=== PATIENT | female | born 1955 | race Caucasian/White ===

== ENCOUNTER 2019-11-01 08:25 | Outpatient (CLI) | payer MEDICARE, OTHER, SELFPAY ==
--- NOTE | 2019-11-01 08:54 | US_ITS ---
WS: [id number] RIGHT DIGITAL MAMMOGRAPHY WITH CAD CLINICAL INFORMATION: ABNORMAL MAMMOGRAM COMPARISON: September 30, 2019 TECHNIQUE: 2 views of the right breast were obtained. FINDINGS: The right breast is composed of heterogeneous fibroglandular density tissue, which can limit the dete ction of small underlying mass lesions. Again seen is the asymmetric density lower quadrant right breast near the inframammary fold. This per sists on spot compression views. Ultrasound is pending. ULTRASOUND BREAST RIGHT TECHNIQUE: Ultrasound right breast focused area of concern. CLINICAL INFORMATION: ABNORMAL MAMMOGRAM COMPARISON: None. FINDINGS: Ultrasound right breast 6 clock position. Area of ductal dilatation with intraductal lesion measuring 2.2 x 0.6 x 1.9 cm suspicious for papilloma. Recommend further evaluation with ultrasound-guided bio psy. US/US breast RT limited* [id number] IMPRESSION: BI-RADS: 4B-Suspicious: Intermediate FOLLOW UP: US Guided Biopsy Recommended
== END 2019-11-01 08:26 | disposition home or self-care (01) ==
LOC: RADSHAW 08:38
PROVIDERS: Family Provider Nurse Practitioner Family; PCP Nurse Practitioner Family; Visit Provider Nurse Practitioner Family
DX: N64.9 Disorder of breast, unspecified (principal); R92.1 Mammographic calcification found on diagnostic imaging of breast
CPT/HCPCS: 76642; 77065

== ENCOUNTER 2019-11-11 13:33 | Outpatient (CLI) | payer MEDICARE, OTHER, SELFPAY ==
[2019-11-11 14:12] LABS: INR 0.99 (0.8-1.2)
--- NOTE | 2019-11-11 14:30 | US_ITS ---
WS: [id number] ULTRASOUND-GUIDED RIGHT BREAST BIOPSY CLINICAL INFORMATION: ABNORMAL MAMMO AND US COMPARISON: None. FINDINGS: The procedure including risks, benefits, and complications were discussed with the patient who agreed to proceed. Using sterile technique patient was prepped and draped in the usual sterile fashion. Aft er 1% lidocaine utilizing real-time ultrasound guidance 4 14-gauge cores were obtained of the right b reast lesion at the 6 o'clock position. Subsequently a titanium clip was placed in the biopsy cavity. No immediate complications. Pathology demonstrates benign breast tissue with fibrosis. No malignancy identified. US/[place] [id number] IMPRESSION: 1. Uncomplicated ultrasound-guided right breast biopsy. 2. The pathology demonstrates benign breast tissue with fibrosis. No malignanc y identified. BI-RADS: 2-Benign FOLLOW UP: 6 Month Follow-up Recommend 6 month follow-up post biopsy right Diagnostic mammogram and ultrasound.
== END 2019-11-11 13:34 | disposition home or self-care (01) ==
PROVIDERS: Visit Provider Family Medicine
DX: Z01.812 Encounter for preprocedural laboratory examination (principal); R92.8 Other abnormal and inconclusive findings on diagnostic imaging of breast; N63.15 Unspecified lump in the right breast, overlapping quadrants
CPT/HCPCS: 19083; 85610; 88305; J2001

== ENCOUNTER 2020-06-11 18:12 | Emergency (ER) | payer MEDICARE, OTHER, SELFPAY ==
[2020-06-11 18:45] VITALS: BP 131/78; PULSE 67; RESP 16; TEMP 36.8; O2SAT 95; BMI 29.9
--- NOTE | 2020-06-11 19:32 | XR_ITS ---
WS: [id number] Chest 2 views, 06/11/2020 Clinical Data: injury Comparison: Portable chest, 07/11/2018. Findings: No nodules, masses or effusions are seen. The heart is normal. The pulmonary vascularity is not increased. No pneumonia or pneumothorax is seen. Midline sternotomy sutures are present. The aor tic arch and descending aorta are minimally tortuous. There are mediastinal clips in the left hilum. There are surgical clips in the left axilla. There are clips in the right upper quadrant from a leeann cystectomy. There are surgical clips in the gastroesophageal junction region. XR/XR chest 2V* [id number] Impression: Atherosclerosis.
--- NOTE | 2020-06-11 23:00 | CTR_ITS ---
PROCEDURE INFORMATION: Exam: CT Chest Without Contrast Exam date and time: 06/11/2020 1:01 AM Age: 64 years old Clinical indication: Injury or trauma; Fall; Initial encounter; Generalized; Blunt trauma (contusions or hematomas); Prior surgery; Surgery type: Cholecystectomy, hysterectomy, cabg, lumpectomy TECHNIQUE: Imaging protocol: Computed tomography of the chest without contrast. Radiation optimization: All CT scans at this facility use at least one of these dose optimization techniques: automated exposure control; mA and/or kV adjustment per patient size (includes targeted exams where dose is matched to clinical indication); or iterative reconstruction. COMPARISON: CT abdomen pelvis w con* [id number] 07/11/2018 5:49 PM RADIATION DOSE METRICS: Total DLP (mGy-cm): 1804.63 FINDINGS: Lungs: Left lower lobe atelectasis. Pleural space: Trace left pleural effusion. Heart: Unremarkable. No cardiomegaly. No pericardial effusion. Aorta: Unremarkable. No aortic aneurysm. Lymph nodes: Unremarkable. No enlarged lymph nodes. Bones/joints: Sternotomy wires. Left 7th, 8th, 9th and 10th displaced rib fractures. Soft tissues: Unremarkable. IMPRESSION: 1. Left 7th, 8th, 9th and 10th displaced rib fractures. 2. Sternotomy wires. 3. Trace left pleural effusion. 4. Left lower lobe atelectasis. PROCEDURE INFORMATION: Exam: CT Abdomen And Pelvis Without Contrast Exam date and time: 06/11/2020 1:01 AM Age: 64 years old Clinical indication: Injury or trauma; Fall; Initial encounter; Generalized; Blunt trauma (contusions or hematomas); Prior surgery; Surgery type: Cholecystectomy, hysterectomy, cabg, lumpectomy TECHNIQUE: Imaging protocol: Computed tomography of the abdomen and pelvis without contrast. Radiation optimization: All CT scans at this facility use at least one of these dose optimization techniques: automated exposure control; mA and/or kV adjustment per patient size (includes targeted exams where dose is matched to clinical indication); or iterative reconstruction. COMPARISON: CT abdomen pelvis w con* [id number] 07/11/2018 5:49 PM RADIATION DOSE METRICS: Total DLP (mGy-cm): 1804.63 FINDINGS: Liver: Normal. No mass. Gallbladder and bile ducts: Cholecystectomy. Pancreas: Normal. No ductal dilation. Spleen: Normal. No splenomegaly. Adrenals: Normal. No mass. Kidneys and ureters: Normal. No hydronephrosis. Stomach and bowel: Diverticulosis without diverticulitis. Appendix: No evidence of appendicitis. Intraperitoneal space: Unremarkable. No free air. No significant fluid collection. Vasculature: Unremarkable. No abdominal aortic aneurysm. Lymph nodes: Unremarkable. No enlarged lymph nodes. Bladder: Unremarkable as visualized. Reproductive: Unremarkable as visualized. Bones/joints: Unremarkable. No acute fracture. Soft tissues: Unremarkable. CT/CT chest abd pel wo con IMPRESSION: 1. Negative for traumatic injury to the abdomen or pelvis. 2. Cholecystectomy. 3. Diverticulosis without diverticulitis. Radiation Dose CTDIVOL = (mGy): DLP = 1804.63~1804.63 (mGy-cm)
--- NOTE | 2020-06-11 23:04 | W.ED.FALL ---
HPI - Fall General: Chief Complaint: Fall Stated Complaint: FALL THROUGH FLOOR, AB PAIN Time Seen by Provider: 06/11/20 22:56 Source: patient Mode of arrival: ambulatory Limitations: no limitations History of Present Illness: HPI Narrative: 64-year-old female who states she was [place] house today and fell to the floor. Patient states that the atul hit her in her left ribs and has had left rib pain since then. States this happened this afternoon and states pain is sharp in nature and hurts with any movement or deep breaths. She denies any head or neck injuries. Denies any extremity pain is able to ambulate without any difficulty. Associated symptoms-after fall: Reports chest pain; Denies abdominal pain, headache(s) or neck pain Review of Systems Const: Denies: fever(s), chills, body aches or change in appetite Eyes: Denies: blurry vision or eye discomfort ENMT: Denies: throat pain or dental pain Card: Reports: chest pain Resp: Denies: dyspnea GI: Denies: abdominal pain, nausea, vomiting or diarrhea : Denies: dysuria Musc: Denies: neck pain or back pain Skin/Breast: Denies: rash Neuro: Denies: headache(s) Psych: Denies: depression Ady/Lymph: Denies: easy bruising All/Imm: Denies: urticaria PFSH ED PFSH: Medical History CAD (coronary artery disease) HTN (hypertension) Surgical History S/P CABG (coronary artery bypass graft) Family History Other Heart disease Social History Smoking and tobacco status: never smoked Alcohol intake: never Substance/Drug Use: never Physical Exam Const: COMMON NORMALS: no acute distress, patient oriented x3 and healthy appearing HENMT: COMMON NORMALS: normocephalic and atraumatic HEAD & SCALP: normocephalic and atraumatic Eye: COMMON NORMALS: Equal, round and reactive pupils present and EOMs intact bilaterally PUPIL: Yes Equal, round and reactive pupils present Neck/C-Spine: COMMON NORMALS: full ROM and supple Chest: COMMONS NORMALS: normal inspection of the chest OTHER: tenderness over left chest Resp: COMMON NORMALS: normal respiratory effort, No retractions, No use of accessory muscles and clear to auscultation bilaterally AUSCULTATION: clear to auscultation bilaterally Cardio: COMMON NORMALS: regular rate, regular rhythm and No murmurs present (Cardio) RATE: regular rate RHYTHM: regular rhythm GI: COMMON NORMALS: Normal to inspection, nondistended, normoactive bowel sounds present, Soft to palpation, non-tender and no masses PALPATION: Yes Soft to palpation Extremity: COMMON NORMALS: normal to inspection and full ROM Neuro: COMMON NORMALS: patient oriented x3, moves all extremities and no focal motor deficits Psych: COMMON NORMALS: mental status grossly normal, Normal thought process present and cooperative THOUGHT PROCESS: Normal thought process present Skin: COMMON NORMALS: no rashes or lesions noted and no wounds GENERAL SKIN EXAM: no rashes or lesions noted Course Vital Signs: Vital signs: Vital Signs Temperature 98.3 F 06/11/20 18:45 Pulse Rate 78 06/12/20 01:45 Respiratory Rate 18 06/12/20 02:19 Blood Pressure 122/70 06/12/20 02:19 Pulse Oximetry 93 06/12/20 02:19 MDM - Fall MDM Narrative: Medical decision making narrative: 64-year-old presents here with rib fractures from a fall. I spoke to Dr. Manriquez at [facility] who did not recommend transfer or acute treatment. I did offer patient admission here for pain control she states her pain is much improved. Did set her up with incentive spirometry. She is to follow-up with Dr. Mayer. Patient is to return to ER if worsening. She understands and agrees to the plan. Lab Data: Labs: Lab Results 06/12/20 06/12/20 Range/Units 00:37 00:37 WBC 8.5 (4.0-10.0) 10^3/ uL RBC 4.74 (4.1-5.3) 10^6/u L Hgb 14.6 (11.5-15.3) g/dL Hct 44.3 (37.0-47.0) % MCV 93.5 (81-99) fL MCH 30.8 (28.0-34.0) pg MCHC 33.0 (30.0-36.0) g/dL RDW 12.3 (12.1-15.1) % Plt Count 210 (130-400) 10^3/c mm MPV 11.1 H (7.4-10.4) fL Neut % (Auto) 79.8 % Lymph % (Auto) 11.3 % Frederick % (Auto) 8.0 % Eos % (Auto) 0.1 % Baso % (Auto) 0.4 % Neut # (Auto) 6.80 (1.8-7.7) 10^3/u L Lymph # (Auto) 1.0 (0.8-4.8) 10^3/u L Frederick # (Auto) 0.7 (0.2-0.9) 10^3/u L Eos # (Auto) 0.0 (0.0-0.8) 10^3/u L Baso # (Auto) 0.0 (0.0-0.1) 10^3/u L Nucleated RBC % (a uto) 0 % Nucleated RBCs # 0.0 /100WBC Sodium 141 (136-145) mmol/L Potassium 4.5 (3.5-5.1) mmol/L Chloride 105 (98-107) mmol/L Carbon Dioxide 24 (22-29) mmol/L Anion Gap 16.5 (5-19) BUN 24 H (8-23) mg/dL Creatinine 0.9 (0.5-0.9) mg/dL GFR Calculation 62.8 L (90-130) mL/min Glucose 133 H (65-115) mg/dL Calculated Osmolal ity 291 (285-295) mOsm/k g Calcium 9.6 (8.5-10.5) mg/dL Total Bilirubin 1.6 H (0.15-1.2) mg/dL AST 23 (0-32) U/L ALT 25 (0-33) U/L Alkaline Phosphata se 70 (35-105) IU/L Total Protein 7.8 (6.6-8.7) g/dL Albumin 4.6 (3.5-5.2) g/dL Globulin 3.2 (1.3-4.6) g/dL Discharge Plan Discharge Patient Disposition: Home Clinical Impression: Fracture, ribs Qualifiers: Encounter type: initial encounter Rib fracture type: multiple ribs Fracture type: closed Laterality: left Qualified Code(s): S22.42XA - Multiple fractures of ribs, left side, initial encounter for closed fracture Condition: Stable Prescriptions: New ondansetron 4 mg tablet,disintegrating 4 mg PO Q6H PRN (Reason: nausea and vomiting) Qty: 14 RF: 0 Percocet 5-325 mg tablet 1 tab PO Q6H PRN (Reason: pain) Qty: 20 RF: 0 No Action magnesium oxide 400 mg magnesium capsule 400 mg PO DAILY RF: 0 potassium chloride 20 mEq tablet extended release 20 meq PO DAILY RF: 0 isosorbide mononitrate 20 mg tablet 10 mg PO BID RF: 0 simvastatin 40 mg tablet 40 mg PO DAILY RF: 0 pantoprazole 40 mg tablet,delayed release (DR/EC) 40 mg PO DAILY RF: 0 furosemide [Lasix] 40 mg tablet 40 mg PO DAILY RF: 0 aspirin [Adult Low Dose Aspirin] 81 mg tablet,delayed release (DR/EC) 81 mg PO DAILY RF: 0 nitroglycerin [Nitrostat] 0.4 mg tablet, sublingual 0.4 mg SUBLINGUAL Q5M PRNRF: 0 metoprolol tartrate 25 mg tablet 25 mg PO DIRECTED 30 Days Qty: 105 RF: 6 Discharge Orders: Discharge Order (Routine); Ordered 06/12/20 Ordered By: Seth Gandara Referrals: Jose Mayer MD [Physician] - 1-3 days Discharge Diet: Advance as tolerated Discharge Activity: Resume usual activity Patient Instructions: Rib Fracture (ED) Discharge Date/Time: 06/12/20 02:21 Coding Level of Care Code ED 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
[2020-06-12 00:42] LABS: Basophils % 0.4 %; Eosinophils % 0.1 %; Hematocrit 44.3 % (37.0-47.0); Hemoglobin 14.6 g/dL (11.5-15.3); Lymphocytes % 11.3 %; Mean Corpuscular Hemoglobin 30.8 pg (28.0-34.0); Mean Corpuscular Volume 93.5 fL (81-99); Mean Platelet Volume 11.1 fL (7.4-10.4); Monocytes # 0.7 10^3/uL (0.2-0.9); Neutrophils % 79.8 %; Nucleated Red Blood Cells % 0 %; Platelet Count 210 10^3/cmm (130-400); Red Blood Count 4.74 10^6/uL (4.1-5.3); Red Cell Distribution Width 12.3 % (12.1-15.1); White Blood Count 8.5 10^3/uL (4.0-10.0)
[2020-06-12] MEDS: HYDROmorphone 1 mg/mL INJ 1 mL 0.5 MG IVP (00:46)
[2020-06-12] MEDS: ondansetron 2 mg/ML SDV 2 mL 4 MG IVP (00:46)
[2020-06-12 00:58] LABS: Alanine Aminotransferase 25 U/L (0-33); Albumin Level 4.6 g/dL (3.5-5.2); Alkaline Phosphatase 70 IU/L (35-105); Anion Gap 16.5 (5-19); Aspartate Amino Transferase 23 U/L (0-32); Blood Urea Nitrogen 24 mg/dL (8-23); Calcium 9.6 mg/dL (8.5-10.5); Carbon Dioxide 24 mmol/L (22-29); Chloride 105 mmol/L (98-107); Globulin 3.2 g/dL (1.3-4.6); Glomerular Filtration Rate 62.8 mL/min (90-130); Glucose 133 mg/dL (65-115); Osmolality Calculated 291 mOsm/kg (285-295); Potassium 4.5 mmol/L (3.5-5.1); Sodium 141 mmol/L (136-145); Total Bilirubin 1.6 mg/dL (0.15-1.2); Total Protein 7.8 g/dL (6.6-8.7)
[2020-06-12 01:45] VITALS: PULSE 78; RESP 18; O2SAT 96
[2020-06-12 02:12] VITALS: RESP 16
[2020-06-12] MEDS: ondansetron 4 MG Tablet PO (02:12)
[2020-06-12] MEDS: oxyCODONE-APAP 5-325 mg Tablet 1 TAB PO (02:12)
[2020-06-12 02:19] VITALS: BP 122/70; RESP 18; O2SAT 93
--- NOTE | 2020-06-12 10:58 | DCPLANNER ---
manager adult had message to schedule a follow up appointment for patient with Dr[facility] in [facility]. manager adult called [facility], spoke with Kaela, gave clinic patients information. manager adult was told that patients information would be printed and reviewed. Clinic will call patient with appointment information.
--- NOTE | 2020-06-17 07:48 | DCPLANNER ---
Patient has a follow up appointment scheduled for , June 17, 2020 at 2:[address] Mayer at [facility]. Clinic will call patient with appointment information.
--- NOTE | 2020-07-10 10:58 | DCPLANNER ---
Patient had a follow up appointment scheduled for 06.17.20 with [facility] - patient did attend the appointment.
== END 2020-06-12 02:21 | disposition home or self-care (01) ==
PROVIDERS: Emergency Provider Emergency Medicine
DX: S22.42XA Multiple fractures of ribs, left side, initial encounter for closed fracture (principal); Z79.82 Long term (current) use of aspirin; I25.10 Atherosclerotic heart disease of native coronary artery without angina pectoris; I10 Essential (primary) hypertension; Z95.1 Presence of aortocoronary bypass graft; W13.3XXA Fall through floor, initial encounter
CPT/HCPCS: 12345; 71046; 71250; 74176; 80053; 85025; 99282; 99283; J1170; J2405; Q0162

== ENCOUNTER 2020-06-17 12:31 | Outpatient (CLI) | payer MEDICARE, OTHER, SELFPAY ==
--- NOTE | 2020-06-17 12:39 | XRR_ITS ---
PROCEDURE INFORMATION: Exam: XR Chest, 1 View Exam date and time: 06/17/2020 1:03 PM Age: 64 years old Clinical indication: Injury or trauma; Fall; Follow-up exam; Fracture, traumatic; Closed fracture; One rib; Left; Injury date: 1 week ago; Prior surgery; Surgery type: Cabg; Additional info: Fall 1 week ago TECHNIQUE: Imaging protocol: XR of the chest Views: 1 view. COMPARISON: CT chest abd pel wo con 06/12/2020 1:01 AM FINDINGS: Tubes, catheters and devices: Prior CABG with sternotomy sutures in place. Lungs: Minor curvilinear atelectasis left lung base. Pleural space: Small left pleural effusion. Heart/Mediastinum: No cardiomegaly. Bones/joints: Displaced left 7th, 8th and 9th rib fractures posteriorly. XR/XR chest 1V [id number] IMPRESSION: 1.) Displaced left 7th, 8th and 9th rib fractures posteriorly. 2.) New small left pleural effusion and minor left lung base curvilinear atelectasis.
== END 2020-06-17 12:32 | disposition home or self-care (01) ==
LOC: RAD 12:38
PROVIDERS: PCP Family Medicine; Visit Provider Thoracic Surgery (Cardiothoracic Vascular Surgery)
DX: S22.42XA Multiple fractures of ribs, left side, initial encounter for closed fracture (principal); X58.XXXA Exposure to other specified factors, initial encounter; J90 Pleural effusion, not elsewhere classified; J98.11 Atelectasis
CPT/HCPCS: 71045

== ENCOUNTER 2020-07-30 08:27 | Outpatient (CLI) | payer MEDICARE, OTHER, SELFPAY ==
--- NOTE | 2020-07-30 08:41 | XR_ITS ---
WS: [id number] Chest with left rib detail, 07/30/2020 Clinical Data: fall Comparison: PA chest, 06/17/2020. Findings: The lungs show no nodules, masses, or effusions. The heart is normal. No pneumonia or pneumothorax is seen. Midline sternotomy sutures are seen along with mediastinal clips. There are clips in the left axilla. There are clips in the upper abdomen bilaterally. The aortic arch and descending aorta are tortuous. There are fractures of the posterior left seventh, eighth and ninth ribs unchanged. No new rib fractu res are seen. No subcutaneous emphysema is present. XR/XR ribs LT mn 3V w CXR1V [id number] Impression: 1. Atherosclerosis. 2. Old left seventh, eighth and ninth rib fractures unchanged.
== END 2020-07-30 08:28 | disposition home or self-care (01) ==
LOC: RAD 08:32
PROVIDERS: PCP Family Medicine; Visit Provider Thoracic Surgery (Cardiothoracic Vascular Surgery)
DX: S22.42XA Multiple fractures of ribs, left side, initial encounter for closed fracture (principal); X58.XXXA Exposure to other specified factors, initial encounter; I70.90 Unspecified atherosclerosis
CPT/HCPCS: 71101

== ENCOUNTER 2020-09-08 23:27 | Observation (INO) | payer MEDICARE, OTHER, SELFPAY ==
[2020-09-08 23:32] VITALS: BP 154/85; PULSE 91; RESP 18; TEMP 36.6; O2SAT 96; BMI 29.8
--- NOTE | 2020-09-08 23:32 | XR_ITS ---
WS: [id number] Portable AP upright chest, 09/09/2020 Clinical Data: Chest pain Comparison: PA chest, 07/30/2020. Findings: No nodules, masses or effusions are seen. The heart is normal. The aortic arch and descendi ng aorta show mild tortuosity. The pulmonary vascularity is not increased. No pneumonia or pneumothor ax is seen. Midline sternotomy clips and mediastinal clips from heart surgery are seen. There are old healed left rib fractures. XR/XR chest 1V portable [id number] Impression: Atherosclerosis.
--- NOTE | 2020-09-08 23:33 | ECG_ITS ---
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 Measurements Intervals [place] Rate: 80 P: 61 WI: 168 QRS: -7 QRSD: 88 T: 75 QT: 373 QTc: 430 Interpretive Statements SINUS RHYTHM POSSIBLE LEFT ATRIAL ENLARGEMENT [-0.1mV P WAVE IN V1/V2] Compared to ECG 07/12/2018 01:09:15 No significant changes Electronically Signed On 09-09-2020 6:46:13 FORESTRY ENGINEER by Catherine Wright M.D. [email or web address]
--- NOTE | 2020-09-08 23:40 | ED_ITS ---
HPI - Chest Pain General: Chief Complaint: Chest Pain Stated Complaint: CP Time Seen by Provider: 09/08/20 23:29 Source: patient Mode of arrival: EMS Limitations: no limitations History of Present Illness: HPI narrative: Anamaria is a very nice 65-year-old female who comes in with a complaint of chest pain. Patient has a known history of coronary disease and had bypass surgery about 5 years ago here at this hospital. She never did have an [place]. Patient states tonight she was at home sitting in her bed when she developed sharp chest pain that then developed into a pressure or heavy sensation in her chest. The pain radiated up into her neck. Initially she felt like the pain was so severe that she could pass out but ultimately she did not have a syncopal episode. She denies any diaphoresis or nausea or vomiting. She denies any exacerbating factors but was EMS was called they gave her 4 baby aspirin and 2 sublingual nitroglycerin which ultimately resolved her pain. Patient states she feels okay now. She denies any evaluation of her heart since her bypass surgery 5 years ago. Associated symptoms: Reports dyspnea; Deny abdominal pain, diaphoresis, fever(s), nausea, palpitations, syncope or vomiting Review of Systems Const: Denies: fever(s), chills, body aches, fatigue, malaise or diaphoresis Eyes: Denies: change in vision, blurry vision, photophobia, eye discomfort, eye discharge, eye redness or yellow eyes ENMT: Denies: throat pain, odynophagia, hoarseness, swelling of lips/tongue, ear or mastoid pain, ear discharge, change in hearing or nasal discharge Card: Reports: chest pain and pre-syncope; Denies: palpitations, irregular heart rhythm, edema, lightheadedness, syncope, dyspnea on exertion or orthopnea Resp: Reports: dyspnea; Denies: productive cough, non-productive cough, wheezing, hemoptysis or chest congestion GI: Denies: abdominal pain, nausea, vomiting, hematemesis, coffee ground emesis, heartburn, diarrhea, constipation, GI cramping, hematochezia or melena : Denies: flank pain, dysuria, urinary frequency, urinary urgency or hematuria Musc: Denies: neck pain, back pain, extremity pain, extremity swelling, joint pain, joint swelling, joint redness, joint warmth or joint stiffness Skin/Breast: Denies: rash, pruritus, erythema, skin pain or skin tenderness Neuro: Denies: headache(s), numbness in extremities, weakness in extremities, sensory changes, lack of coordination, difficulty walking, dizziness, vertigo, confusion, Slurred speech present or seizure-like activity Ady/Lymph: Denies: easy bruising, easy bleeding, petechiae, purpura or enlar ged lymph nodes All/Imm: Denies: urticaria, throat swelling, tongue swelling, facial swelling or acute wheezing PFSH ED PFSH: Medical History (Updated 09/09/20 @ 02:32 by Leesa Wakefield) CAD (coronary artery disease) HTN (hypertension) Surgical History S/P CABG (coronary artery bypass graft) Family History Other Heart disease Social History Smoking and tobacco status: never smoked Alcohol intake: never Physical Exam Const: COMMON NORMALS: no acute distress, patient oriented x3, no limitations and alert GENERAL APPEARANCE: cooperative HENMT: COMMON NORMALS: normocephalic, atraumatic, external ears normal, EAC's normal and Normal external nose present HEAD & SCALP: normal to inspection, normocephalic and atraumatic FACE & SINUS: normal facial exam and face symmetric NOSE: Normal external nose present and Normal nares present EXTERNAL EAR: Yes external ears normal EXTERNAL AUDITORY CANAL: EAC's normal MOUTH: Normal oral and palatal mucosa present, lip normal and tongue normal Eye: COMMON NORMALS: Equal, round and reactive pupils present and conjunctivae normal GENERAL EYE: appearance normal, both eyes and all related structures ALIGNMENT: Yes alignment normal PERIORBITAL: periorbital findings normal EYELID: eyelids normal CONJUNCTIVA: Yes conjunctivae normal SCLERA: sclerae normal PUPIL: Yes Equal, round and reactive pupils present Neck/C-Spine: COMMON NORMALS: full ROM, no lymphadenopathy, supple, no meningeal signs and no JVD GENERAL: Yes normal visual inspection and Yes trachea midline Chest: COMMONS NORMALS: normal inspection of the chest and normal palpation of entire chest wall Resp: COMMON NORMALS: normal respiratory effort, No retractions, No use of accessory muscles and clear to auscultation bilaterally EFFORT & INSPECTION: Yes able to speak in complete sentences and Yes symmetric chest movement AUSCULTATION: clear to auscultation bilaterally, no crackles, no rales, no rhonchi and no wheezes Cardio: COMMON NORMALS: no JVD, regular rate, regular rhythm, S1 normal heart sound present and S2 normal heart sound present RATE: regular rate RHYTHM: regular rhythm HEART SOUNDS: S1 normal heart sound present, S2 normal heart sound present, no click, no gallops, no murmurs and no rubs GI: COMMON NORMALS: Soft to palpation and No hepatosplenomegaly present PALPATION: Yes Soft to palpation, No Tenderness to palpation present (GI), No Guarding due to palpation present (GI), No Rigid due to palpation, Yes No hepatosplenomegaly present, No Hernia present, No Palpable mass present and No Pulsatile mass present : COMMON NORMALS: Yes no CVA tenderness BLADDER/KIDNEY EXAM: Yes no CVA tenderness EXTERNAL FEMALE EXAM: No Hernia present Back/Pelvis: COMMON NORMALS: no CVA tenderness, thoracic and lumbar spine normal to inspection, no thoracic nor lumbar tenderness and thoraco-lumbar ROM normal Extremity: COMMON NORMALS: normal to inspection, full ROM, capillary refill normal, no joint enlargement, no clubbing, cyanosis or edema and no calf tenderness Neuro: COMMON NORMALS: patient oriented x3, CN's II-XII intact bilaterally, moves all extremities, no focal motor deficits and no sensory deficits noted SENSORIUM/ORIENTATION: Yes alert MENINGEAL SIGNS: Yes no meningeal signs SPEECH: speech normal Psych: COMMON NORMALS: mental status grossly normal, Normal thought process present, cooperative, normal affect, speech normal and activity/motor behavior normal SPEECH: Yes normal speech THOUGHT PROCESS: Normal thought process present Skin: COMMON NORMALS: no rashes or lesions noted, turgor normal, no jaundice, no petechiae and no mottling GENERAL SKIN EXAM: no rashes or lesions noted and turgor normal Course Vital Signs: Vital signs: Vital Signs Temperature 97.9 F 09/08/20 23:32 Pulse Rate 82 09/09/20 02:13 Respiratory Rate 14 09/09/20 02:13 Blood Pressure 132/77 09/09/20 02:13 Pulse Oximetry 97 09/09/20 02:13 MDM - Chest Pain MDM Narrative: Medical decision making narrative: Mrs. Small is a nice 65-year-old female who comes in complaining of chest discomfort. Upon further history the patient admits to intermittent episodes of bilateral elbow discom fort and throat discomfort when she is up with activity but also when she will be at rest. Tonight symptoms were much different. They were increased in severity and the duration. Patient felt better after nitroglycerin and aspirin given by EMS. The patient is somewhat of a poor historian initially she told me that she not had any work-up since her bypass surgery 5 years ago but I found a hospitalization just a little over 2 years ago where she had a stress test which did show some reversible ischemia that the lute packer or applier elected to treat medically at that time. I believe that this time they may need to move ahead with a cath as she had a abnormal stress test before is unlikely to be helpful at this time. Patient has other questions or concerns. Dr. Quiroz the hospitalist agrees to except the patient for admission. Lab Data: Attestation: I reviewed the patient's lab results. Labs: Lab Results 09/09/20 09/09/20 09/09/20 Range/Units 00:15 00:15 00:15 WBC Cancelled Corrected WBC Cancelled RBC Cancelled Hgb Cancelled Hct Cancelled MCV Cancelled MCH Cancelled MCHC Cancelled RDW Cancelled Plt Count Cancelled MPV Cancelled Gran % Cancelled Neut % (Auto) Cancelled Lymph % (Auto) Cancelled [place] % (Auto) Cancelled Eos % (Auto) Cancelled Baso % (Auto) Cancelled Neut # (Auto) Cancelled Lymph # (Auto) Cancelled [place] # (Auto) Cancelled Eos # (Auto) Cancelled Baso # (Auto) Cancelled Absolute Gran (aut o) Cancelled Nucleated RBC % (a uto) Cancelled Nucleated RBCs # Cancelled PT Cancelled INR Cancelled Sodium Cancelled Potassium Cancelled Chloride Cancelled Carbon Dioxide Cancelled Anion Gap Cancelled BUN Cancelled Creatinine Cancelled GFR Calculation Cancelled Glucose Cancelled Calculated Osmolal ity Cancelled Calcium Cancelled Magnesium Cancelled Total Bilirubin Cancelled AST Cancelled ALT Cancelled Alkaline Phosphata se Cancelled Troponin T Baselin e NT-Pro-B Natriuret Pep Cancelled Total Protein Cancelled Albumin Cancelled Globulin Cancelled Lipase Cancelled 09/09/20 09/09/20 09/09/20 Range/Units 00:15 01:04 01:04 WBC 4.8 Corrected WBC RBC 4.36 Hgb 13.2 Hct 40.4 MCV 92.7 MCH 30.3 MCHC 32.7 RDW 12.7 Plt Count 181 MPV 10.6 H Gran % Neut % (Auto) 63.7 Lymph % (Auto) 23.8 [place] % (Auto) 9.8 Eos % (Auto) 1.9 Baso % (Auto) 0.6 Neut # (Auto) 3.05 Lymph # (Auto) 1.1 [place] # (Auto) 0.5 Eos # (Auto) 0.1 Baso # (Auto) 0.0 Absolute Gran (aut o) Nucleated RBC % (a uto) 0 Nucleated RBCs # 0.0 PT INR Sodium 141 Potassium 3.9 Chloride 107 Carbon Dioxide 25 Anion Gap 12.9 BUN 20 Creatinine 0.6 GFR Calculation 100.0 Glucose 124 H Calculated Osmolal ity 296 H Calcium 9.3 Magnesium 2.3 Total Bilirubin 0.6 AST 16 ALT 20 Alkaline Phosphata se 84 Troponin T Baselin e Cancelled NT-Pro-B Natriuret Pep 142 H Total Protein 6.7 Albumin 4.4 Globulin 2.3 Lipase 38 09/09/20 09/09/20 Range/Units 01:04 01:04 WBC Corrected WBC RBC Hgb Hct MCV MCH MCHC RDW Plt Count MPV Gran % Neut % (Auto) Lymph % (Auto) [place] % (Auto) Eos % (Auto) Baso % (Auto) Neut # (Auto) Lymph # (Auto) [place] # (Auto) Eos # (Auto) Baso # (Auto) Absolute Gran (aut o) Nucleated RBC % (a uto) Nucleated RBCs # PT 13.10 INR 0.97 Sodium Potassium Chloride Carbon Dioxide Anion Gap BUN Creatinine GFR Calculation Glucose Calculated Osmolal ity Calcium Magnesium Total Bilirubin AST ALT Alkaline Phosphata se Troponin T Baselin e 8 NT-Pro-B Natriuret Pep Total Protein Albumin Globulin Lipase Imaging Data^: CXR: Attestation: I personally reviewed and interpreted this imaging study as follows: My impression: No acute cardiopulmonary findings. EKG Data^: EKG 1: Attestation: I personally reviewed and interpreted this EKG as follows: EKG interpretation date: 09/08/20 EKG interpretation time: 23:52 Interpretation: Normal sinus rhythm at 80 beats a minute, no blocks, normal intervals, T waves inverted in aVL and V2. Otherwise no acute ST or T wave changes. EKG 2: Attestation: I personally reviewed and interpreted this EKG as follows: EKG interpretation date: 09/09/20 EKG interpretation time: 02:07 Interpretation: Normal sinus rhythm at 81 beats a minute, no blocks, normal intervals, T wave inversions in aVL and V2, otherwise no acute ST segment changes. Unchanged from previous. Discharge Plan Discharge Patient Disposition: Placed in Observation Clinical Impression: Chest pain Qualifiers: Chest pain type: chest pain due to myocardial ischemia Ischemic chest pain type: unstable angina pectoris Qualified Code(s): I20.0 - Unstable angina Coding Level of Care Code ED Atomic Physics Professor for g Fwd Exam Comprehensive
[2020-09-09] VITALS (15 sets, daily range): BP systolic 102–156; BP diastolic 67–99; PULSE 65–84; RESP 14–25; TEMP 35.8–36.6; O2SAT 96–97
[2020-09-09] MEDS: sodium chloride 0.9% 1,000 ML 100 ML IV (00:15)
[2020-09-09 01:07] LABS: Basophils % 0.6 %; Eosinophils # 0.1 10^3/uL (0.0-0.8); Eosinophils % 1.9 %; Hematocrit 40.4 % (37.0-47.0); Hemoglobin 13.2 g/dL (11.5-15.3); Lymphocytes # 1.1 10^3/uL (0.8-4.8); Lymphocytes % 23.8 %; Mean Corpuscular HGB Conc 32.7 g/dL (30.0-36.0); Mean Corpuscular Hemoglobin 30.3 pg (28.0-34.0); Mean Corpuscular Volume 92.7 fL (81-99); Mean Platelet Volume 10.6 fL (7.4-10.4); Monocytes # 0.5 10^3/uL (0.2-0.9); Monocytes % 9.8 %; Neutrophils # 3.05 10^3/uL (1.8-7.7); Neutrophils % 63.7 %; Nucleated Red Blood Cells % 0 %; Platelet Count 181 10^3/cmm (130-400); Red Blood Count 4.36 10^6/uL (4.1-5.3); Red Cell Distribution Width 12.7 % (12.1-15.1); White Blood Count 4.8 10^3/uL (4.0-10.0)
[2020-09-09 01:25] LABS: INR 0.97 (0.8-1.2)
[2020-09-09 01:32] LABS: Troponin(5th) Baseline 8 ng/L (0-10)
--- NOTE | 2020-09-09 01:33 | ECG_ITS ---
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 Measurements Intervals [place] Rate: 81 P: 54 AR: 190 QRS: -3 QRSD: 85 T: 70 QT: 378 QTc: 439 Interpretive Statements SINUS RHYTHM POSSIBLE LEFT ATRIAL ENLARGEMENT [-0.1mV P WAVE IN V1/V2] Compared to ECG 07/12/2018 01:09:15 No significant changes Electronically Signed On 09-09-2020 6:51:35 MARKETING OPERATIONS ANALYST by Catherine Wright M.D. [id number]
[2020-09-09 01:39] LABS: Alanine Aminotransferase 20 U/L (0-33); Albumin Level 4.4 g/dL (3.5-5.2); Alkaline Phosphatase 84 IU/L (35-105); Anion Gap 12.9 (5-19); Aspartate Amino Transferase 16 U/L (0-32); Blood Urea Nitrogen 20 mg/dL (8-23); Calcium 9.3 mg/dL (8.5-10.5); Carbon Dioxide 25 mmol/L (22-29); Chloride 107 mmol/L (98-107); Globulin 2.3 g/dL (1.3-4.6); Glucose 124 mg/dL (65-115); Lipase 38 U/L (13-60); Magnesium 2.3 mg/dL (1.7-2.3); NT Pro B Type Natriuretic Pept 142 pg/mL (0-125); Osmolality Calculated 296 mOsm/kg (285-295); Potassium 3.9 mmol/L (3.5-5.1); Sodium 141 mmol/L (136-145); Total Bilirubin 0.6 mg/dL (0.15-1.2); Total Protein 6.7 g/dL (6.6-8.7)
--- NOTE | 2020-09-09 03:18 | USCV_ITS ---
Anamaria Small Age: 65 Gender: F : 1955 Exam Date: 09/09/2020 06:40 Ordering Phys: Esteban Quiroz MD Technologist: Mary Kathleen Exam Location: [facility] [place] Indication: LV FUNCTION AND WMA BP: 154 / 99 HR: 76 Rhythm: Sinus Technical Quality: Adequate MEASUREMENTS (Male / Female) Normal Values 2D ECHO LV Diastolic Diameter PLAX 3.2 cm 4.2 - 5.9 / 3.9 - 5.3 cm LV Systolic Diameter PLAX 1.9 cm LV Chamber Size 3.2 cm IVS Diastolic Thickness 1.3 cm 0.6 - 1.0 / 0.6 - 0.9 cm IVS Systolic Thickness 1.5 cm LVPW Diastolic Thickness 1.4 cm 0.6 - 1.0 / 0.6 - 0.9 cm LVPW Systolic Thickness 2.1 cm RV Chamber Size 3.7 cm LVOT Diameter 2.0 cm LV Ejection Fraction 2D Teich 72.8 % LV Ejection Fraction MOD 2C 62.7 % LV Ejection Fraction 2C AL 62.2 % LA Diameter 3.7 cm LA Width 2.8 cm LA Height 4.0 cm RA Width 2.4 cm RA Height 3.6 cm Aorta at Sinotubular Diameter 2.3 cm M-MODE LV Diastolic Diameter MM 3.4 cm 4.2 - 5.9 / 3.9 - 5.3 cm LV Systolic Diameter MM 1.1 cm LV Ejection Fraction MM Teich 94.6 % IVS Diastolic Thickness MM 0.9 cm 0.6 - 1.0 / 0.6 - 0.9 cm IVS Systolic Thickness MM 1.6 cm LVPW Diastolic Thickness MM 1.3 cm 0.6 - 1.0 / 0.6 - 0.9 cm LVPW Systolic Thickness MM 1.2 cm Aortic Annulus Diameter 3.0 cm LA Ao Ratio MM 1.4 MV E Point Septal Separation 0.6 cm DOPPLER AV Peak Velocity 134.0 cm/s LVOT Peak Velocity 108.0 cm/s AV Area Cont Eq vti 2.3 cm squared AV Area Cont Eq pk 2.6 cm squared MV Area PHT 5.8 cm squared Mitral E to A Ratio 3.7 MV E' Velocity 64.5 cm/s Mitral E to MV E' Ratio 7.9 Mitral E to LV E' Lateral Ratio 7.8 Mitral E to LV E' Septal Ratio 8.0 TR Peak Velocity 213.7 cm/s TR Peak Gradient 18.3 mmHg TV Peak E Velocity 49.0 cm/s Right Atrial Pressure 3.0 mmHg Pulmonary Artery Systolic Pressu 21.3 mmHg PV Peak Velocity 67.0 cm/s RV Acceleration Time 0.2 s RV Ejection Time 0.5 s RV AcT/ET 0.4 FINDINGS Left Ventricle Normal left ventricular size and systolic function with no regional wall motion abnormalities. LV EF is 55-60%. Diastolic function is abnormal. Right Ventricle The right ventricle is normal in size and function. Right Atrium The right atrium is normal in size. Left Atrium The left atrium is normal in size. Mitral Valve Structurally normal mitral valve without significant stenosis or prolapse. There is mild mitral regurgitation. Aortic Valve Structurally normal aortic valve without significant sclerosis or stenosis. There is no aortic regurgitation. Tricuspid Valve Structurally normal tricuspid valve without significant stenosis or regurgitation. Insufficient TR jet to calculate RVSP Pulmonic Valve Structurally normal pulmonic valve without significant stenosis. There is no pulmonic regurgitation. Pericardium Normal pericardium without effusion. Aorta Normal ascending aorta dimension. CONCLUSIONS LV systolic function is normal with EF of 55-60% Diastolic function is abnormal Mild mitral regurgitation is noted Compared to prior study from 01/24/2020, no significant changes are present Naeem Parekh MD (Electronically Signed) Final Date: 09 September 2020 13:37 S
--- NOTE | 2020-09-09 03:20 | P.HP_ITS ---
Providers/Chief Complaint Admitting Physician: Esteban Quiroz MD Primary Care Provider: Pricilla Agarwal MD Chief Complaint: CP History of Present Illness Anamaria Small is a 65 year old female with past medical history of coronary artery disease s/p CABG (4 vessels) 5 years back, Ca lt breast 13 years back status post lumpectomy and chemoradiation, hypertension, came in with chief c omplaint of left-sided pressure-like chest pain radiating to neck and arm started today last around 30 minutes, associated with palpitation, nausea, shortness of breath, relieved by aspirin ( 325 mg oral * 1 dose ) and sublingual nitro. She is having on and off chest discomfort for the last 2 to 3 weeks, but 2 days event was extremely severe. On review of system she denies any fever, headache, abdominal pain, vomiting, sick contact. Patient was admitted 2 years back for chest pain and abdominal pain, at that time a stress test was done.that showed a small reversible perfusion abnormality but at that time it was decided to treat medically. Upon arrival in the ER: She was worked up for chest pain; ECA course: EKG: SINUS RHYTHM , POSSIBLE LEFT ATRIAL ENLARGEMENT. No significant change from the past EKG. X-ray chest: No acute infiltrates, no pulmonary vascular congestion. Pertinent labs: Troponin: Baseline: 8, 2-hour: Pending, proBNP: 142 Review of Systems Const: Denies: fever(s), chills, body aches, change in appetite or diaphoresis Card: Denies: edema, swelling of feet/ankles, orthopnea or leg pain with exertion Resp: Denies: dyspnea, wheezing or pain on inspiration GI: Denies: abdominal pain, nausea, vomiting, diarrhea or constipation : Denies: flank pain Musc: Denies: back pain, extremity pain or extremity swelling Neuro: Denies: headache(s), difficulty walking or confusion Medications/Allergies Home Medications Medication Instructions Recorded Confirmed Last Taken Type aspirin 81 mg tablet,delayed 81 mg PO DAILY 01/23/20 06/17/20 Unknown History release isosorbide mononitrate 20 mg tablet 10 mg PO BID tab 01/23/20 06/17/20 Unknown History magnesium oxide 400 mg PO DAILY 01/23/20 06/17/20 Unknown History nitroglycerin 0.4 mg sublingual 0.4 mg SUBLINGUAL Q5M PRN 01/23/20 06/17/20 Unknown History tablet pantoprazole 40 mg tablet,delayed 40 mg PO DAILY 01/23/20 06/17/20 Unknown History release simvastatin 40 mg tablet 40 mg PO DAILY 01/23/20 06/17/20 Unknown History hydrocodone 10 mg-acetaminophen 1 tab PO Q6H PRN 30 Days #120 tab 06/16/20 06/17/20 Unknown Rx 325 mg tablet ondansetron 8 mg disintegrating 8 mg PO Q8H PRN #60 tab 06/16/20 06/17/20 Unknown Rx tablet furosemide 40 mg tablet 40 mg PO DAILY PRN 06/17/20 06/17/20 Unknown History metoprolol tartrate 25 mg tablet 25 mg PO DIRECTED tab 06/17/20 Unknown History potassium chloride 20 mEq 20 meq PO DAILY PRN 06/17/20 06/17/20 Unknown History tablet,extended release Allergies Allergy/AdvReac Type Severity Reaction Status Date / Time morphine Allergy ALGY-Difficulty Verified 06/16/20 13:22 Breathing PFSH Acute PFSH: Medical History CAD (coronary artery disease) HTN (hypertension) Surgical History (Updated 09/09/20 @ 03:42 by Esteban Quiorz MD) S/P CABG (coronary artery bypass graft) Family History Other Heart disease Social History Smoking and tobacco status: never smoked Alcohol intake: never Vitals/I&O/Wt Last Vital Signs Temp 97.9 F 09/08/20 23:32 Pulse 82 09/09/20 02:13 Resp 14 09/09/20 02:13 BP 132/77 09/09/20 02:13 Pulse Ox 97 09/09/20 02:13 Weight last 48 hrs Weight 83.915 kg Physical Exam Const: COMMON NORMALS: patient oriented x3 HENMT: COMMON NORMALS: normocephalic and atraumatic HEAD & SCALP: normocephalic and atraumatic EXTERNAL EAR: Yes external ears normal Eye: COMMON NORMALS: no scleral icterus GENERAL EYE: appearance normal, both eyes and all related structures Chest: COMMONS NORMALS: normal inspection of the chest and normal palpation of entire chest wall CHEST: Yes Symmetrical chest wall rise Resp: COMMON NORMALS: normal respiratory effort, No retractions, No use of accessory muscles and clear to auscultation bilaterally EFFORT & INSPECTION: Yes symmetric chest movement AUSCULTATION: clear to auscultation bilaterally Cardio: COMMON NORMALS: regular rate, regular rhythm, S1 normal heart sound present, S2 normal heart sound present, No gallops present (Cardio), No murmurs present (Cardio), No rub (Cardio) and Peripheral pulses 2+ throughout RATE: regular rate RHYTHM: regular rhythm HEART SOUNDS: S1 normal heart sound present and S2 normal heart sound present PERIPHERAL PULSES: Peripheral pulse s 2+ throughout GI: COMMON NORMALS: Normal to inspection, nondistended, normoactive bowel sounds present, Soft to palpation, non-tender, No hepatosplenomegaly present and no masses AUSCULTATION: Yes normoactive bowel sounds PALPATION: Yes Soft to palpation and Yes No hepatosplenomegaly present RECTAL EXAM: deferred Extremity: COMMON NORMALS: no clubbing, cyanosis or edema and no pedal edema Neuro: COMMON NORMALS: patient oriented x3 Data : 09/09/20 01:04 09/09/20 01:04 A&P Assessment and plan (1) Chest pain: Typical cardiac chest pain. Trend troponin Serial EKG 2D echo Possible stress test Aspirin 81 mg oral daily Imdur 30 mg oral daily Continue simvastatin Continue metoprolol tartrate 25 mg p.o. every 12 hours Status: Acute Qualifiers: Chest pain type: chest pain due to myocardial ischemia Ischemic chest pain type: unstable angina pectoris Qualified Code(s): I20.0 - Unstable angina (2) Palpitations: Continue metoprolol tartrate 25 mg every 12 hours daily for now Telemetry Status: Acute (3) HTN (hypertension): Continue metoprolol tartrate 25 mg every 12 hours daily for now Status: Acute (4) CAD (coronary artery disease): Continue aspirin 81 mg oral daily Status: Acute (5) S/P CABG (coronary artery bypass graft): Status: Acute Additional A&P Information DVT prophylaxis: Lovenox 40 subcu daily CODE STATUS: Full code Disposition: Home Attestations Medical Necessity Statement*: Patient needs to be in hospital for evaluation and management of chest pain Coding Level of Care Code Acute Molder Closed Molds for [facility] Fwd Diagnoses Chest pain I20.0 Chest pain type: chest pain due to myocardial ischemia Ischemic chest pain type: unstable angina pectoris Palpitations R00.2 HTN (hypertension) I10 CAD (coronary artery disease) I25.10 S/P CABG (coronary artery bypass graft) Z95.1
--- NOTE | 2020-09-09 04:20 | PC.NURSE ---
Patient arrived to the floor from the ED after report was received via phone. Patient is alert and oriented and ambulatory. Patient does not complain of any pain at this time. Patient has been oriented to her room and has call light within reach.
--- NOTE | 2020-09-09 04:27 | PC.NURSE ---
Addendum entered by Karol Bay RN 09/09/20 04:38: Daughter called back. Med rec completed. Original Note: Daughter states my family took the med list home with them. ED nurse states she does not have a copy of the med list. Patient states my daughter Pamela will have the list ([phone]). Attempt to contact with no answer. Unable to complete med rec at this time.
[2020-09-09] MEDS: sodium chloride 0.9% 1,000 ML 75 ML IV (04:43)
[2020-09-09] MEDS: enoxaparin 40 mg/0.4 mL Syringe SUBCUT (04:43)
[2020-09-09 05:58] LABS: Troponin 5 2HR 6.79 ng/L (0-10)
--- NOTE | 2020-09-09 06:12 | ECG_ITS ---
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 The perfusion scan will be documented separately. DATA: Baseline heart rate was 67 beats per minute. Baseline blood pressure was 114/79 millimeters of mercury. Target heart rate was 154. Maximum heart rate achieved was 93 . which was 60 % of the predicted target heart rate. Maximum blood pressure was 130/81 millimeters of mercury. The reason for ending the test was completion of the protocol. The patient did not experience any symptoms. ELECTROCARDIOGRAM: BASELINE: Sinus rhythm. Normal axis. Otherwise, no ST-T changes suggestive of ischemia noted. No arrhythmia noted. EXERCISE: After Lexiscan injection, no ST-T changes suggestive of ischemic noted. No arrhythmia noted. 1. EKG not suggestive of ischemia 2. Lexiscan injection unremarkable. 3. Perfusion scan will be documented separately. Electronically Signed On 09-09-2020 15:23:39 RELATIONS LIAISON by ALESSANDRO RICARDO [id number]
--- NOTE | 2020-09-09 06:12 | NMCV_ITS ---
NM lupillo perf SPECT r/s* [id number] Anamaria Small Age: 65 Gender: F : 1955 Exam Date: 09/09/2020 09:59 Ordering Phys: Esteban Quiroz MD Technologist: SHUKRI Vargas Exam Location: [facility] Indications: CHEST PAIN STRESS TEST Please see separate stress test report in [facility] for full findings IMAGE PROTOCOL Rest/Stress 1 Lexiscan Day Radiopharmaceutical Dose (mCi) Administration Site Administered by Rest: Tc-99m 10.6 IV SHUKRI Vargas Sestamibi Stress:Tc-99m 32.5 IV SHUKRI Feliz Sestamibi Rest: 09-Sep-2020 60 Discovery 630 Stress: 09-Sep-2020 30 Discovery 630 0.4mg Lexiscan. Images obtained in supine and prone position. SPECT RESULTS Technical Quality: Excellent Raw Data Analysis: Normal Image Corrections: No attenuation or motion correction applied Summed Stress Score: 2 Summed Rest Score: 1 Summed Difference Score: 2 PERFUSION FINDINGS Reduced radiotracer uptake on both rest and stress in the anterior wall. This likely represents attenuation artifact. No evidence of significant ischemia is noted FUNCTIONAL RESULTS (calculated via Gated SPECT) Stress Image LV EF (%): 69 Stress EDV (mL):81 TID: 1.07 Stress ESV (mL):25 FUNCTIONAL FINDINGS: LV systolic function is normal with EF of 69% IMPRESSIONS 1. Myocardial perfusion imaging is normal with no evidence of ischemia. There is reduced radiatracer uptake in anterior wall both at rest and stress representing attenuation artifact. 2. LV systolic function is normal with EF of 69% Naeem Parekh MD (Electronically Signed) Final Date: 09 September 2020 12:40 S
[2020-09-09 07:47] LABS: Troponin 5 6HR 7.36 ng/L (0-10)
[2020-09-09 07:50] LABS: Troponin 5 6HR Delta -0.64 ng/L (0-12)
--- NOTE | 2020-09-09 08:13 | PM.PN ---
Subjective Subjective: Interval history: Chart reviewed, plan for nuclear stress testing today. Troponins noted, flat trend. No EKG changes noted. Has been chest pain-free since admission. Medications: Reviewed: Yes Medication Review Details: Active Medications Generic Name Dose Route Start Last Admin Trade Name Freq PRN Reason Stop Dose Admin Acetaminophen 650 mg 09/09/20 03:11 Acetaminophen 32 5 Mg Tablet PO Q6H PRN Mild/Mod Pain Or Temp >/= 101 Acetaminophen 650 mg 09/09/20 04:15 Acetaminophen 32 5 Mg Tablet PO Q6H PRN Mild/Mod Pain Or Temp >/= 101 Hydrocodone Bitart /Acetaminophen 1 tab 09/09/20 04:15 Hydrocodone-Acet aminophen 10-325 M g Tablet PO Q6H PRN pain Aminophylline 25 mg 09/09/20 06:43 Aminophylline 25 Mg/Ml Sdv 10 Ml IVP 09/10/20 06:42 Q2M PRN see dose instruct ions Aspirin 81 mg 09/09/20 09:00 Aspirin 81 Mg Ec Tablet PO DAILY CAMERON Atorvastatin Calci um 20 mg 09/09/20 09:00 Atorvastatin 40 Mg Tablet PO DAILY CAMERON Bisacodyl 10 mg 09/09/20 03:11 Bisacodyl 5 Mg T ablet PO DAILY PRN CONSTIPATION Enoxaparin Sodium 40 mg 09/09/20 03:30 09/09/20 04:43 Enoxaparin 40 Mg /0.4 Ml Syringe SUBCUT 40 mg Q24H CAMERON Administration Sodium Chloride 1,000 mls @ 100 m ls/hr 09/08/20 23:45 09/09/20 04:57 Sodium Chloride 0.9% IV 0 mls/hr .Q10H CAMERON Infusion Sodium Chloride 1,000 mls @ 75 ml s/hr 09/09/20 04:15 09/09/20 04:43 Sodium Chloride 0.9% IV 75 mls/hr .[id number] CAMERON Administration Influenza Virus Va ccine Quadrival 60 mcg 09/09/20 09:00 Flu Vacc Pf 2020 -21 (6 Mos+) IM 09/09/20 09:01 .ONCE ONE Isosorbide Mononit rate 30 mg 09/09/20 09:00 Isosorbide [place] itrate Er 30 Mg Ta blet PO DAILY CAMERON Metoprolol Tartrat e 25 mg 09/09/20 09:00 Metoprolol Tartr ate 25 Mg Tablet PO BID CAMERON Naloxone HCl 0.1 mg 09/09/20 03:11 Naloxone 0.4 Mg/ Ml Sdv IVP Q2M PRN OPIATERV Nitroglycerin 0.4 mg 09/09/20 04:15 Nitroglycerin 0. 4 Mg Sublingual Ta blet SUBLINGUAL Q5M PRN PAIN Nitroglycerin 0.4 mg 09/09/20 06:43 Nitroglycerin 0. 4 Mg Sublingual Ta blet SUBLINGUAL 09/10/20 06:42 Q5M PRN CHEST PAIN Ondansetron HCl 4 mg 09/09/20 03:11 Ondansetron 2 Mg /Ml Sdv 2 Ml IVP Q8H PRN vomiting, or N/V if npo Ondansetron HCl 4 mg 09/09/20 04:15 Ondansetron 2 Mg /Ml Sdv 2 Ml IVP Q6H PRN NAUSEA AND VOMITI NG Ondansetron HCl 4 mg 09/09/20 06:43 Ondansetron 2 Mg /Ml Sdv 2 Ml IVP Q2M PRN NAUSEA Pantoprazole Sodiu m 40 mg 09/09/20 09:[address] 40 Mg Tablet PO DAILY CAMERON Pneumococcal Polyv alent Vaccine 0.5 ml 09/09/20 09:00 Pneumococcal (23 Valent) Sdv 0.5 M l IM 09/09/20 09:01 .ONCE ONE Regadenoson 0.4 mg 09/09/20 06:43 Regadenoson 0.4 Mg/5 Ml Syringe IVP ONCE PRN Lexiscan Stress T est morphine Allergy (Verified 09/09/20 03:58) ALGY-Difficulty Breathing Vitals/I&O/Wt Last Vital Signs Temp 96.5 F L 09/09/20 06:55 Pulse 83 09/09/20 06:55 Resp 18 09/09/20 06:55 BP 102/76 09/09/20 06:55 Pulse Ox 96 09/09/20 06:55 09/08/20 09/09/20 09/09/20 22:59 06:59 14:59 Intake Total 470 / 470 Balance 470 / 470 Weight last 48 hrs Weight 85.275 kg Weight 83.915 kg Physical Exam Const: COMMON NORMALS: no acute distress and patient oriented x3 GENERAL APPEARANCE: cooperative and comfortable ORIENTATION/CONSCIOUSNESS: Yes awake HENMT: COMMON NORMALS: normocephalic, atraumatic, hearing grossly normal bilaterally and moist oral mucous membranes HEAD & SCALP: normocephalic and atraumatic Eye: COMMON NORMALS: Equal, round and reactive pupils present, EOMs intact bilaterally and conjunctivae normal CONJUNCTIVA: Yes conjunctivae normal PUPIL: Yes Equal, round and reactive pupils present Neck/C-Spine: COMMON NORMALS: full ROM GENERAL: Yes normal visual inspection and Yes trachea midline Resp: COMMON NORMALS: normal respiratory effort, No retractions, No use of accessory muscles and clear to auscultation bilaterally EFFORT & INSPECTION: Yes able to speak in complete sentences, Yes symmetric chest movement and No tachypneic AUSCULTATION: clear to auscultation bilaterally Cardio: COMMON NORMALS: regular rate, regular rhythm, S1 normal heart sound present, S2 normal heart sound present and No murmurs present (Cardio) RATE: regular rate RHYTHM: regular rhythm HEART SOUNDS: S1 normal heart sound present and S2 normal heart sound present GI: COMMON NORMALS: Normal to inspection, nondistended, normoactive bowel sounds present, Soft to palpation and non-tender PALPATION: Yes Soft to palpation Extremity: COMMON NORMALS: normal to inspection, full ROM and no clubbing, cyanosis or edema; negative for no pedal edema Neuro: COMMON NORMALS: patient oriented x3, moves all extremities, no focal motor deficits, no sensory deficits noted and gait normal Psych: COMMON NORMALS: mental status grossly normal, Normal thought process present, cooperative, normal affect and speech normal SPEECH: Yes normal speech THOUGHT PROCESS: Normal thought process present Skin: COMMON NORMALS: no rashes or lesions noted, no jaundice, no petechiae and no mottling GENERAL SKIN EXAM: no rashes or lesions noted Data : 09/09/20 01:04 09/09/20 01:04 A&P Assessment and plan (1) Chest pain: -Troponins with flat trend, no significant delta, no noted ischemic changes on EKG -Telemetry monitoring -nuclear stress testing today; had prior nuclear stress testing that showed small sized reversible perfusion abnormality of mid to apical inferolateral wall (07/2018) -Echo pending report -TRINY -continue statin, BB, imdur -check A1c, TSH, lipid panel Status: Acute Qualifiers: Chest pain type: chest pain due to myocardial ischemia Ischemic chest pain type: unstable angina pectoris Qualified Code(s): I20.0 - Unstable angina (2) HTN (hypertension): -VSS; continue to monitor -continue oral antihypertensives Status: Chronic Qualifiers: Hypertension type: essential hypertension Qualified Code(s): I10 - Essential (primary) hypertension (3) CAD (coronary artery disease): -known hx of CAD s/p CABG x 4 Status: Acute Qualifiers: Associated angina: angina presence unspecified Coronary Disease-Associated Artery/Lesion type: unspecified vessel or lesion type [place] vs. transplanted heart: d[place]las heart Qualified Code(s): I25.10 - Atherosclerotic heart disease of [place] coronary artery without angina pectoris Additional A&P Information -Obesity: BMI-30 kg/m2 -Chronic diastolic CHF; no acute exacerbation, BNP-142; repeat Echo ordered; continue oral lasix -hx of dyslipidemia; on statin -hx of L breast cancer -NPO for stress testing -GI ppx with PPI -DVT ppx with lovenox -Dispo: home -Code status: FULL code Attestations Medical Necessity Statement*: Patient requires hospitalization for continued management of chest pain pending nuclear stress testing. Time Spent in Patient Care: 16 - 35 minutes (>than 50% of time spent in counselling and/or direct pt care on unit). 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 transplanted heart: douglas heart
[2020-09-09] MEDS: atorvastatin 40 mg Tablet 20 MG PO (08:27)
[2020-09-09] MEDS: metoprolol tartrate 25 mg Tablet PO ×2 (08:27→18:00)
[2020-09-09] MEDS: aspirin 81 mg EC Tablet PO (08:27)
[2020-09-09] MEDS: isosorbide mononitrate ER 30 mg Tablet PO (08:27)
[2020-09-09] MEDS: pantoprazole DR 40 mg Tablet PO (08:27)
--- NOTE | 2020-09-09 10:18 | PC.NURSE ---
off unit to [facility] for Stress test
[2020-09-09] MEDS: regadenoson 0.4 Mg/5 ml Syringe IVP (10:44)
[2020-09-09] MEDS: pneumococcal (23 valent) SDV 0.5 mL IM (12:18)
--- NOTE | 2020-09-09 17:50 | PC.NURSE ---
Pt and family concerns Pt and dgtr were concerned regarding pt's cardiac history before. Pt and dgtr stated that she had stress test before and they had checked her troponins and they were all normal. She stated before she was suppose to be discharge but they requested that pt needs to be seen by a institutional custodian and Dr. Haro did an angiogram and resulted patient will need to have CABG. Pt stated she had a CABG 4 or 5 yrs ago here with Dr. Mayer. They are concerned with her history and would like to speak to Dr. Haro and let him know what was going on. I discuss to the pt and family regarding the protocol and policy that it will be the hospitalist who will make a decision regarding a cardiology consult base on the physician's medical diagnosis. Informed the pt and dgtr that her Cardiac stress test and Echocardiogram both came back normal. Dr. Olivera was informed. And pt was informed she will stay overnight due to the time is late for a discharge. Pt and dgtr questioned me that if all the tests came back normal why the pt will have to stay. Dgtr then requested again that she wants Dr. Haro to see the patient to know what was going on. Dgtr is concerned that if they are going home this evening and they are 45 mins away from the hospital patient will have another worse episode. This nurse does not want to give Dr. Haro's personal #, so this nurse called him if he is okay to visit the pt as a courtesy visit for reassurance to the patient and family. Dr. Haro agrees to have a courtesy visit to the pt after his clinic hours. 1830 pm- Dr. Haro came and visit the pt in room. Dr. Olivera is informed regarding my call to Dr. Haro for patient and family to address their concerns.
--- NOTE | 2020-09-09 17:50 | PC.NURSE ---
Pt and family concerns Pt and dgtr were concerned regarding pt's cardiac history before. Pt and dgtr stated that she had stress test before and they had checked her troponins and they were all normal. She stated they requested that pt needs to be seen by a plant and maintenance technician and Dr. Haro did an angiogram and resulted pt will need to have CABG. They are concerned regarding this and would like to speak to Dr. Haro. I discuss to the pt and family regarding the protocol and policy that it will be the hospitalist who will make a decision regarding a cardiology consult base on the physician's medical diagnosis as well as her Cardiac stress test and Echocardiogram both came back normal. Dr. Olivera was informed. And pt was informed she will stay overnight due to the time is late for a discharge. Pt and dgtr questioned me that if all the tests came back normal why the pt will have to stay. Dgtr then requested she wants Dr. Haro to know about this. Dgtr is concerned that if they are going home this evening and they are 45 mins away from the hospital patient will have another worse episode. I don't want to give Dr. Haro's personal #, so this nurse called him if he is okay to visit the pt as a courtesy visit in the hospital to reassure the patient and her family. Dr. Haro agrees to visit the pt after his clinic hours. 1830 pm- Dr. Haro came and visit the pt in room. Dr. Olivera is informed regarding my call to Dr. Haro for patient and family to address to their concerns.
--- NOTE | 2020-09-09 18:24 | P.DS_ITS ---
Discharge Providers Date of Admission: 09/09/20 02:27 Date of Discharge: September 09, 2020 Attending Provider at Admission: Esteban Quiroz MD Attending Provider at Discharge: Kalee Olivera MD Consults: None Primary Care Provider: Pricilla Agarwal MD Diagnoses at Discharge Discharge Diagnosis (1) Chest pain: Status: Resolved Permanent problem details: -Troponins with flat trend, no significant delta, no noted ischemic changes on EKG -Telemetry monitoring -nuclear stress testing today with no noted evidence of ischemia; had prior nuclear stress testing that showed small sized reversible perfusion abnormality of mid to apical inferolateral wall (07/2018) -Echo: EF=55-60%, mild MR, diastolic function is abnormal -TRINY -continue statin, BB, imdur Qualifiers: Chest pain type: chest pain due to myocardial ischemia Ischemic chest pain type: unstable angina pectoris Qualified Code(s): I20.0 - Unstable angina (2) HTN (hypertension): Status: Chronic Permanent problem details: -VSS; continue to monitor -continue oral antihypertensives Qualifiers: Hypertension type: essential hypertension Qualified Code(s): I10 - Essential (primary) hypertension (3) CAD (coronary artery disease): Status: Acute Permanent problem details: -known hx of CAD s/p CABG x 4 Qualifiers: Coronary Disease-Associated Artery/Lesion type: unspecified vessel or lesion type [place] vs. transplanted heart: [place] heart Associated angina: angina presence unspecified Qualified Code(s): I25.10 - Atherosclerotic heart disease of [place] coronary artery without angina pectoris Other Information Additional DC diagnoses/information: -Obesity: BMI-30 kg/m2 -Chronic diastolic CHF; no acute exacerbation, BNP-142; repeat Echo noted above; continue oral lasix -hx of dyslipidemia; on statin -hx of L breast cancer Reason for Visit Reason for Visit: CP Hospital Course Hospital Course Patient was admitted to the cardiac stepdown unit and placed on telemetry monitoring. Due to complaints of chest pain and her underlying history of CAD she had nuclear stress testing done and echo both of which are reported above and showed no acute abnormalities. Patient has been chest pain-free since admission, no reported episodes of palpitations. She has been hemodynamically stable, afebrile and consistently on room air. Medications are continued with slight adjustments primarily to Imdur and beta-amandeep doses. Patient and daughter insisted on speaking with Dr. Haro despite negative work-up; reassured by Dr. Haro that there is no need for active intervention at this time given negative work-up and her being chest pain-free. She will follow-up at [facility] in 1 week and needs to follow-up with her primary care provider in the interim. She is counseled on need to seek medical attention immediately should symptoms recur. Physical Exam Const: COMMON NORMALS: no acute distress and patient oriented x3 GENERAL APPEARANCE: cooperative and comfortable ORIENTATION/CONSCIOUSNESS: Yes awake HENMT: COMMON NORMALS: normocephalic, atraumatic, hearing grossly normal bilaterally and moist oral mucous membranes HEAD & SCALP: normocephalic and atraumatic Eye: COMMON NORMALS: Equal, round and reactive pupils present, EOMs intact bilaterally and conjunctivae normal CONJUNCTIVA: Yes conjunctivae normal PUPIL: Yes Equal, round and reactive pupils present Neck/C-Spine: COMMON NORMALS: full ROM GENERAL: Yes normal visual inspection and Yes trachea midline Resp: COMMON NORMALS: normal respiratory effort, No retractions, No use of accessory muscles and clear to auscultation bilaterally EFFORT & INSPECTION: Yes able to speak in complete sentences, Yes symmetric chest movement and No tachypneic AUSCULTATION: clear to auscultation bilaterally Cardio: COMMON NORMALS: regular rate, regular rhythm, S1 normal heart sound present, S2 normal heart sound present and No murmurs present (Cardio) RATE: regular rate RHYTHM: regular rhythm HEART SOUNDS: S1 normal heart sound present and S2 normal heart sound present GI: COMMON NORMALS: Normal to inspection, nondistended, normoactive bowel sounds present, Soft to palpation and non-tender PALPATION: Yes Soft to palpation Extremity: COMMON NORMALS: normal to inspection, full ROM and no clubbing, cyanosis or edema; negative for no pedal edema Neuro: COMMON NORMALS: patient oriented x3, moves all extremities, no focal motor deficits, no sensory deficits noted and gait normal Psych: COMMON NORMALS: mental status grossly normal, Normal thought process present, cooperative, normal affect and speech normal SPEECH: Yes normal speech THOUGHT PROCESS: Normal thought process present Skin: COMMON NORMALS: no rashes or lesions noted, no jaundice, no petechiae and no mottling GENERAL SKIN EXAM: no rashes or lesions noted Discharge Data Data Completed and Pending: Completed Studies During Hospitalization Category Date Time Status Sestamibi Stress Test Request Jared ne Exams 09/09/20 06:12 Completed XR chest 1V juan jose ble [id number] Stat Exams 09/08/20 23:32 Completed NM lupillo perf SPECT r/s* [id number] Routin e Nuc Med 09/09/20 06:12 Completed CV echo complete* [id number] Routine Ultrasound 09/09/20 03:18 Completed Pending at discharge Category Date Time Status Complete Blood Co unt w/Auto AM LABS Lab 09/10/20 04:00 Ordered Complete Blood Co unt w/Auto AM LABS Lab 09/11/20 04:00 Ordered Complete Blood Co unt w/Auto AM LABS Lab 09/12/20 04:00 Ordered Comprehensive Met abolic Panel AM LA BS Lab 09/10/20 04:00 Ordered Comprehensive Met abolic Panel AM LA BS Lab 09/11/20 04:00 Ordered Comprehensive Met abolic Panel AM LA BS Lab 09/12/20 04:00 Ordered Lipid Panel AM LA BS Lab 09/10/20 04:00 Ordered Magnesium AM LABS Lab 09/10/20 04:00 Ordered Prothrombin Time INR AM LABS Lab 09/10/20 04:00 Ordered Thyroid Stimulati ng Hormone AM LABS Lab 09/10/20 04:00 Ordered Labs from last 24 hours 09/09/20 09/09/20 09/09/20 07:16 05:27 01:04 WBC Corrected WBC RBC Hgb Hct MCV MCH MCHC RDW Plt Count MPV Gran % Neut % (Auto) Lymph % (Auto) [place] % (Auto) Eos % (Auto) Baso % (Auto) Neut # (Auto) Lymph # (Auto) [place] # (Auto) Eos # (Auto) Baso # (Auto) Absolute Gran (aut o) Nucleated RBC % (a uto) Nucleated RBCs # PT INR Sodium Potassium Chloride Carbon Dioxide Anion Gap BUN Creatinine GFR Calculation Glucose Calculated Osmolal ity Calcium Magnesium Total Bilirubin AST ALT Alkaline Phosphata se Troponin T Baselin e 8 Troponin T 120 Min [place] 6.79 Delta Troponin T Not Reportable Troponin T Hi Sens 6Hr 7.36 Troponin T Hi Sens 6Hr Delta -0.64 L NT-Pro-B Natriuret Pep Total Protein Albumin Globulin Lipase 09/09/20 09/09/20 09/09/20 01:04 01:04 01:04 WBC 4.8 Corrected WBC RBC 4.36 Hgb 13.2 Hct 40.4 MCV 92.7 MCH 30.3 MCHC 32.7 RDW 12.7 Plt Count 181 MPV 10.6 H Gran % Neut % (Auto) 63.7 Lymph % (Auto) 23.8 [place] % (Auto) 9.8 Eos % (Auto) 1.9 Baso % (Auto) 0.6 Neut # (Auto) 3.05 Lymph # (Auto) 1.1 [place] # (Auto) 0.5 Eos # (Auto) 0.1 Baso # (Auto) 0.0 Absolute Gran (aut o) Nucleated RBC % (a uto) 0 Nucleated RBCs # 0.0 PT 13.10 INR 0.97 Sodium 141 Potassium 3.9 Chloride 107 Carbon Dioxide 25 Anion Gap 12.9 BUN 20 Creatinine 0.6 GFR Calculation 100.0 Glucose 124 H Calculated Osmolal ity 296 H Calcium 9.3 Magnesium 2.3 Total Bilirubin 0.6 AST 16 ALT 20 Alkaline Phosphata se 84 Troponin T Baselin e Troponin T [address] [place] Delta Troponin T Troponin T Hi Sens 6Hr Troponin T Hi Sens 6Hr Delta NT-Pro-B Natriuret Pep 142 H Total Protein 6.7 Albumin 4.4 Globulin 2.3 Lipase 38 09/09/20 09/09/20 09/09/20 00:15 00:15 00:15 WBC Corrected WBC RBC Hgb Hct MCV MCH MCHC RDW Plt Count MPV Gran % Neut % (Auto) Lymph % (Auto) [place] % (Auto) Eos % (Auto) Baso % (Auto) Neut # (Auto) Lymph # (Auto) [place] # (Auto) Eos # (Auto) Baso # (Auto) Absolute Gran (aut o) Nucleated RBC % (a uto) Nucleated RBCs # PT Cancelled INR Cancelled Sodium Cancelled Potassium Cancelled Chloride Cancelled Carbon Dioxide Cancelled Anion Gap Cancelled BUN Cancelled Creatinine Cancelled GFR Calculation Cancelled Glucose Cancelled Calculated Osmolal ity Cancelled Calcium Cancelled Magnesium Cancelled Total Bilirubin Cancelled AST Cancelled ALT Cancelled Alkaline Phosphata se Cancelled Troponin T Baselin e Cancelled Troponin T 120 [address] [place] Delta Troponin T Troponin T Hi Sens 6Hr Troponin T Hi Sens 6Hr Delta NT-Pro-B Natriuret Pep Cancelled Total Protein Cancelled Albumin Cancelled Globulin Cancelled Lipase Cancelled 09/09/20 00:15 WBC Cancelled Corrected WBC Cancelled RBC Cancelled Hgb Cancelled Hct Cancelled MCV Cancelled MCH Cancelled MCHC Cancelled RDW Cancelled Plt Count Cancelled MPV Cancelled Gran % Cancelled Neut % (Auto) Cancelled Lymph % (Auto) Cancelled [place] % (Auto) Cancelled Eos % (Auto) Cancelled Baso % (Auto) Cancelled Neut # (Auto) Cancelled Lymph # (Auto) Cancelled [place] # (Auto) Cancelled Eos # (Auto) Cancelled Baso # (Auto) Cancelled Absolute Gran (aut o) Cancelled Nucleated RBC % (a uto) Cancelled Nucleated RBCs # Cancelled PT INR Sodium Potassium Chloride Carbon Dioxide Anion Gap BUN Creatinine GFR Calculation Glucose Calculated Osmolal ity Calcium Magnesium Total Bilirubin AST ALT Alkaline Phosphata se Troponin T Baselin e Troponin T 120 [address] [place] Delta Troponin T Troponin T Hi Sens 6Hr Troponin T Hi Sens 6Hr Delta NT-Pro-B Natriuret Pep Total Protein Albumin Globulin Lipase Vitals: Last Vital Signs Temp 97.6 F 09/09/20 15:58 Pulse 78 09/09/20 15:58 Resp 20 H 09/09/20 15:58 BP 102/67 09/09/20 15:58 Pulse Ox 97 09/09/20 15:58 Discharge Plan Discharge Patient Disposition: Home Condition: Stable Prescriptions: Continued magnesium oxide 400 mg magnesium capsule 400 mg PO DAILY RF: 0 simvastatin 40 mg tablet 40 mg PO DAILY RF: 0 pantoprazole 40 mg tablet,delayed release (DR/EC) 40 mg PO DAILY RF: 0 aspirin [Adult Low Dose Aspirin] 81 mg tablet,delayed release (DR/EC) 81 mg PO DAILY RF: 0 nitroglycerin [Nitrostat] 0.4 mg tablet, sublingual 0.4 mg SUBLINGUAL Q5M PRN (Reason: Chest Pain) RF: 0 furosemide [Lasix] 40 mg tablet 40 mg PO DAILY PRN (Reason: edema) RF: 0 potassium chloride 20 mEq tablet extended release 20 meq PO DAILY PRN (Reason: edema) RF: 0 ondansetron 8 mg tablet,disintegrating 8 mg PO Q8H PRN (Reason: nausea and vomiting) Qty: 60 RF: 1 Changed metoprolol tartrate 25 mg tablet 25 mg PO BID Qty: 0 RF: 0 isosorbide mononitrate 20 mg tablet 30 mg PO DAILY Qty: 0 RF: 0 Discharge Orders: Discharge Order (Routine); Ordered 09/09/20 Ordered By: Kalee Olivera Referrals: Arcelia Alvarado FNP [Nurse Practitioner] - 1 week ([facility] will contact you to schedule an follow-up appointment with Arcelia Alvarado in 1 week. If you haven't heard from them by tomorrow afternoon. Please call ) Pricilla Agarwal MD [Primary Care Provider] - 4-7 days Discharge Diet: Cardiac Discharge Activity: Increase activity as tolerated Discharge Attestations Time Spent in Discharge Care*: greater than 30 min Specific Discharge Activities: educating patient, discussing with pcp/other providers (Dr. Haro), documenting/other paperwork and evaluating patie nt/reviewing data Status at Discharge: Cognitive status at discharge: cognitively intact , Behavioral status at discharge: cooperative and independent in ADL's , Functional status at discharge: independent ambulation Overall status at discharge: patient is back to baseline Quality Metrics Clinical Quality Measures During this hospital stay, did patient experience: None Coding Level of Care Code Acute [employer] for [employer] Diagnoses Chest pain I20.0 Chest pain type: chest pain due to myocardial ischemia Ischemic chest pain type: unstable angina pectoris HTN (hypertension) I10 Hypertension type: essential hypertension CAD (coronary artery disease) I25.10 Coronary Disease-Associated Artery/Lesion type: unspecified vessel or lesion type [place] vs. transplanted heart: [place] heart Associated angina: angina presence unspecified
--- NOTE | 2020-09-09 19:20 | PC.NURSE ---
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 Informed pt on new changes to her meds. Pt did not voice any more concerns. She stated, I am glad Dr. Haro came in and visited me to reassure me and my 2 daughters that I will be okay. And Dr. Haro stated he will see me in his clinic in 7 days. Discharge packet provided to pt.
== END 2020-09-09 19:24 | disposition home or self-care (01) ==
LOC: ER 09-09 02:32 → CSU 09-09 02:45
PROVIDERS: Admitting Provider Internal Medicine; Emergency Provider Emergency Medicine; PCP Family Medicine; Visit Provider Family Medicine
DX: R07.89 Other chest pain (principal); I10 Essential (primary) hypertension; I25.110 Atherosclerotic heart disease of native coronary artery with unstable angina pectoris; Z95.1 Presence of aortocoronary bypass graft; E66.9 Obesity, unspecified; Z68.30 Body mass index [BMI] 30.0-30.9, adult; E78.5 Hyperlipidemia, unspecified; Z85.3 Personal history of malignant neoplasm of breast
CPT/HCPCS: 12345; 36415; 71045; 78452; 80053; 83690; 83735; 83880; 84484; 85025; 85610; 90471; 90686; 90732; 93005; 93017; 93306; 96360; 96361; 96372; 99282; 99285; A9500; G0378; J1650; J2785; J7030

== ENCOUNTER → 2020-10-21 13:46 | Outpatient (BNVA) | payer MEDICARE, OTHER, SELFPAY | PROVIDERS: PCP Family Medicine; Visit Provider Internal Medicine Cardiovascular Disease | DX: D64.9 Anemia, unspecified (principal); I25.10 Atherosclerotic heart disease of native coronary artery without angina pectoris | CPT/HCPCS: 80048; 85025 ==